=== PATIENT | female | born 2000 | race Caucasian/White ===

== ENCOUNTER 2021-03-16 15:42 | Emergency (ER) | payer BC, OTHER ==
[~2021-03-16] VITALS: Ht 165.1 cm; Wt 90.7 kg
[2021-03-16] MEDS ORDERED: DESVENLAFAXINE50 MG PO (15:55)
[2021-03-16] MEDS ORDERED: HYDROXYZINE HCL25 M2 PO (15:58)
[2021-03-16] MEDS ORDERED: ATIVAN0.5 M1 PO (15:59)
[2021-03-16] MEDS ORDERED: ZUPLENZ4 MG PO (15:59)
[2021-03-16] MEDS ORDERED: HYDROCODON-ACE1 EAC7 PO (16:58)
[2021-03-16 17:33] VITALS: BP 147/62
== END 2021-03-16 18:21 | disposition home or self-care (01) ==
LOC: ER 15:42
DX: S82.402A Unspecified fracture of shaft of left fibula, initial encounter for closed fracture (principal); Z79.899 Other long term (current) drug therapy; W17.89XA Other fall from one level to another, initial encounter; Y93.89 Activity, other specified; Y92.89 Other specified places as the place of occurrence of the external cause; Y99.8 Other external cause status